=== PATIENT | female | born 1995 | race Caucasian/White ===

== ENCOUNTER 2022-05-29 20:13 | Emergency (ER) | payer BC, OTHER, SELFPAY ==
[2022-05-29] VITALS (7 sets, daily range): BP systolic 110; BP diastolic 73; PULSE 102–118; RESP 18; TEMP 36.7; O2SAT 96–100; BMI 30.8
--- NOTE | 2022-05-29 20:43 | ED.NAVMDI ---
HPI - Nausea/Vomiting/Diarrhea General Time Seen by Provider: 20:43 Date Seen: 05/29/22 Chief complaint: Nausea/Vomiting Stated complaint: Flu like symptoms, Vomiting Time Seen by Provider: 05/29/22 20:42 Source: patient, RN notes reviewed and old records reviewed Mode of arrival: ambulatory Limitations: no limitations History of Present Illness HPI Narrative: Patient is a very pleasant 26-year-old female who presents to the emergency room with her father for evaluation regarding nausea vomiting and diarrhea. Patient notes that approximately 1000 hours today she was not feeling very well and had the onset of vomiting at 1300 hours. Shortly thereafter she started experiencing very liquid diarrhea. She agrees that she feels more bloated today. She denies any respiratory symptoms at this time. She states that she just finished her 2nd round of antibiotics on SundayMay 26 for recurrent sinusitis. She does not feel that the medication helped very much. She has not had C diff in the past. She does endorse abdominal discomfort. It is rather diffuse across the mid aspect of her abdomen. She denies dysuria or hematuria. She has not had any fever but does describe chills. She does not know that she gets any relief of her abdominal discomfort with vomiting or passing stool. No blood in the stool. 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 Related Data Home Medications Medication Instructions Recorded Confirmed sertraline 50 mg tablet 75 mg PO DAILY 05/29/22 05/29/22 Previous Rx's Medication Instructions Recorded vancomycin 50 mg/mL oral solution 125 mg (2.5 mL) PO QID 10 days 05/30/22 #100 mL Allergies Allergy/AdvReac Type Severity Reaction Status Date / Time Penicillins Allergy Mild Hives Verified 05/29/22 20:52 Review of Systems Status of ROS: Reports: 10 or more systems reviewed and unremarkable except as noted in History and below Narrative: Denies Const: Reports: chills; Denies: fever ENMT: Reports: nasal congestion; Denies: throat pain, neck pain, throat swelling or difficulty swallowing Cardio: Denies: chest pain or shortness of breath with exertion Resp: Denies: shortness of breath, cough or wheezing GI: Denies: difficulty swallowing : Denies: painful urination or urinary frequency Musculo: Denies: neck pain Integ/Breast: Denies: rash Neuro: Denies: headache, numbness in extremities or weakness in extremities Allergy/Immuno: Denies: throat swelling or wheezing PFSH PFSH Social History Smoking Status: Unknown if ever smoked Exam Narrative: Exam Narrative: Patient is alert and oriented. She is lying comfortably in exam room 1. Eyes are clear. Oral cavity with moist mucous membranes. Neck is supple without lymphadenopathy. Heart with regular rate and rhythm and lungs are clear in all lung santos. Abdomen is soft no significant tenderness with palpation. Moving all extremities. No unusual rashes Const: Vital Signs, click to edit/add: Vital Signs - 24 hr 05/29/22 20:36 05/29/22 22:37 05/29/22 22:46 Temperature 98.1 F Pulse Rate 109 H 110 H Respiratory Rate 18 Blood Pressure [Ri ght Upper Arm] 110/73 Pulse Oximetry 100 99 98 Oxygen Delivery Me thod Room Air Room Air 05/29/22 23:00 05/29/22 23:15 05/29/22 23:34 Temperature Pulse Rate 118 H 112 H 109 H Respiratory Rate Blood Pressure [Ri ght Upper Arm] Pulse Oximetry 96 97 99 Oxygen Delivery Me thod 05/29/22 23:45 05/30/22 00:00 05/30/22 00:15 Temperature Pulse Rate 102 H 96 98 Respiratory Rate Blood Pressure [Ri ght Upper Arm] Pulse Oximetry 99 98 98 Oxygen Delivery Me thod 05/30/22 00:30 05/30/22 00:45 05/30/22 01:00 Temperature Pulse Rate 101 H 101 H 113 H Respiratory Rate Blood Pressure [Ri ght Upper Arm] Pulse Oximetry 97 96 97 Oxygen Delivery Me thod 05/30/22 01:15 05/30/22 01:30 05/30/22 01:45 Temperature Pulse Rate 110 H 109 H 109 H Respiratory Rate Blood Pressure [Ri ght Upper Arm] Pulse Oximetry 98 98 97 Oxygen Delivery Me thod 05/30/22 02:00 05/30/22 02:13 Temperature 98.1 F Pulse Rate 110 H Respiratory Rate 18 Blood Pressure [Ri ght Upper Arm] 110/73 Pulse Oximetry 96 Oxygen Delivery Me thod Documenting provider has reviewed patient's vital signs: yes Course Course Hospital Course: At this time will give 2 L of normal saline, Zofran 4 mg IV. Would recommend C diff check is patient has just finished her 2nd round of antibiotics for sinusitis. In addition will check CBC, comprehensive panel, CRP and urinalysis. COVID swab pending Reevaluation(s) Reevaluation #1: Patient noted to have additional emesis after 4 mg of Zofran. Repeated Zofran dosing and patient vomited once again. Will use Ativan 0.5 mg IV in the hopes that she is able to keep down her 1st dose of vancomycin 125 mg p.o.. If she is will send her home with both Ativan and Zofran with vancomycin 125 p.o. q.i.d.. Reevaluation #2: Patient able to keep down vancomycin therefore will send patient home at this time. Vital Signs Vital signs: Initial Vital Signs Temperature 98.1 F 05/29/22 20:36 Temperature Source Temporal Artery Scan 05/29/22 20:36 Respiratory Rate 18 05/29/22 20:36 Blood Pressure 110/73 05/29/22 20:36 Blood Pressure Mean 85 05/29/22 20:36 Blood Pressure Position Sitting 05/29/22 20:36 Pulse Oximetry 100 05/29/22 20:36 Oxygen Delivery Method 05/29/22 20:36 Vital Signs Temperature 98.1 F 05/29/22 20:36 Respiratory Rate 18 05/29/22 20:36 Blood Pressure 110/73 05/29/22 20:36 Pulse Oximetry 100 05/29/22 20:36 Oxygen Delivery Method 05/29/22 20:36 Temperature 98.1 F 05/30/22 02:13 Pulse Rate 110 H 05/30/22 02:00 Respiratory Rate 18 05/30/22 02:13 Blood Pressure 110/73 05/30/22 02:13 Pulse Oximetry 96 05/30/22 02:00 Oxygen Delivery Method 05/29/22 22:37 MDM - Nausea/Vomiting/Diarrhea MDM Narrative Medical decision making narrative: 1. C diff-patient had 2 rounds of antibiotics for the treatment of sinusitis. White count elevated at 13.42 with a normal CRP. Urinalysis with 1+ ketones and negative for COVID/influenza/RSV. Unfortunately C diff is positive. Patient discharged home on vancomycin 125 mg p.o. q.i.d. times 10 days. First dose given in the ER. Patient should note improvement within 24 hours and significant improvement by day 8. If she has ongoing symptoms she will need to return to the emergency room as needed. If she is not completely improved by day 8 May need to check with primary MD to see if extension of 10 day course is necessary. Discussed good handwashing and using 1 bathroom during this time frame. Patient does ask if she can breastfeed. Would recommend washing of the hands and breast area prior to this. 2. Nausea vomiting diarrhea-patient given IV fluids. recommend Zofran 4 mg ODT q.8 hours for nausea. For breakthrough nausea may use Ativan 0.5 mg 1-2 tabs p.o. q.8 hours p.r.n.. Both of these medications issue through [employer]. Ten tablets of each. If using Ativan will likely need to pump and dump any breast milk and use which she has on hand. 2. Disposition-home at this time. Return as needed for worsening symptoms. Start probiotics. Medical Records Attestation: I reviewed the patient's medical records. Lab Data Attestation: I reviewed the patient's lab results. Labs: Lab Results 05/29/22 05/29/22 05/29/22 Range/Units 20:33 20:33 20:40 WBC 13.42 H (4.50-11.00) K/uL RBC 5.14 (4.00-5.20) m/uL Hgb 14.7 (12.0-16.0) gm/dL Hct 43.2 (33.0-51.0) % MCV 84 (80-100) fL MCH 29 (26-34) pg MCHC 34 (32-36) gm/dL RDW Coeff of Luz Marina 12.0 (11.5-15.5) % Plt Count 367 (140-440) K/uL Neut % (Auto) 86.3 H (42.0-72.0) % Lymph % (Auto) 6.4 L (20-44) % Arthur % (Auto) 5.7 (0.0-11.0) % Eos % (Auto) 0.6 (0.0-7.0) % Baso % (Auto) 0.2 (0.0-3.0) % Neut # (Auto) 11.60 H (1.7-7.0) K/uL Lymph # (Auto) 0.90 (0.90-2.90) K/uL Arthur # (Auto) 0.80 (0.00-0.90) K/UL Eos # (Auto) 0.10 (0.00-0.50) K/uL Baso # (Auto) 0.00 (0.00-0.30) K/uL Sodium (135-149) mmol/L Potassium (3.6-5.1) mmol/L Chloride (96-114) mmol/L Carbon Dioxide (20-32) mmol/L BUN (5-24) mg/dL Creatinine (0.5-1.5) mg/dL Estimated Creat Clear Estimated GFR ml/min Glucose (60-115) mg/dL Lactate (0.5-1.9) mmol/L Calcium (8.4-10.6) mg/dL Total Bilirubin (0.1-1.5) mg/dL Direct Bilirubin (0.0-0.5) mg/dL AST (12-35) U/L ALT (4-35) U/L Alkaline Phosphatase (40-150) U/L C-Reactive Protein (0.5-1.0) mg/dL Total Protein (6.0-8.3) g/dL Albumin (3.3-5.0) g/dL Urine Color (Yellow) Urine Appearance (Clear) Urine pH (5.0-8.5) Ur Specific [place] (1.000-1.030) Urine Protein (Negative) Urine Glucose (UA) (Negative) Urine Ketones (Negative) Urine Blood (Negative) Urine Nitrite (Negative) Urine Bilirubin (Negative) Urine Urobilinogen (0.2-1.0) Ur Leukocyte Esterase (Negative) Urine HCG, Qual (Negative) Stl C.difficile Tox PCR (Negative) St C. diff Tox Epid 027 (Negative) SARS-CoV-2 (PCR) Cancelled Negative SARS-CoV-2 Influenza Type A (PCR) Cancelled Negative PCR FLU A Influenza Type B (PCR) Cancelled Negative PCR FLU B RSV (PCR) Negative PCR RSV (Negative) 05/29/22 05/29/22 05/29/22 Range/Units 20:40 20:40 22:44 WBC (4.50-11.00) K/uL RBC (4.00-5.20) m/uL Hgb (12.0-16.0) gm/dL Hct (33.0-51.0) % MCV (80-100) fL MCH (26-34) pg MCHC (32-36) gm/dL RDW Coeff of Luz Marina (11.5-15.5) % Plt Count (140-440) K/uL Neut % (Auto) (42.0-72.0) % Lymph % (Auto) (20-44) % Arthur % (Auto) (0.0-11.0) % Eos % (Auto) (0.0-7.0) % Baso % (Auto) (0.0-3.0) % Neut # (Auto) (1.7-7.0) K/uL Lymph # (Auto) (0.90-2.90) K/uL Arthur # (Auto) (0.00-0.90) K/UL Eos # (Auto) (0.00-0.50) K/uL Baso # (Auto) (0.00-0.30) K/uL Sodium 143 (135-149) mmol/L Potassium 4.1 (3.6-5.1) mmol/L Chloride 108 (96-114) mmol/L Carbon Dioxide 22 (20-32) mmol/L BUN 19 (5-24) mg/dL Creatinine 0.7 (0.5-1.5) mg/dL Estimated Creat Clear 110.55 Estimated GFR 123 ml/min Glucose 141 H (60-115) mg/dL Lactate 1.5 (0.5-1.9) mmol/L Calcium 9.3 (8.4-10.6) mg/dL Total Bilirubin 0.8 (0.1-1.5) mg/dL Direct Bilirubin 0.2 (0.0-0.5) mg/dL AST 26 (12-35) U/L ALT 23 (4-35) U/L Alkaline Phosphatase 91 (40-150) U/L C-Reactive Protein 1.0 (0.5-1.0) mg/dL Total Protein 8.3 (6.0-8.3) g/dL Albumin 4.9 (3.3-5.0) g/dL Urine Color Yellow (Yellow) Urine Appearance Clear (Clear) Urine pH 6.5 (5.0-8.5) Ur Specific [place] 1.015 (1.000-1.030) Urine Protein Negative (Negative) Urine Glucose (UA) Negative (Negative) Urine Ketones 1+ A (Negative) Urine Blood Negative (Negative) Urine Nitrite Negative (Negative) Urine Bilirubin Negative (Negative) Urine Urobilinogen 0.2 (0.2-1.0) Ur Leukocyte Esterase Negative (Negative) Urine HCG, Qual Negative (Negative) Stl C.difficile Tox PCR (Negative) St C. diff Tox Epid 027 (Negative) SARS-CoV-2 (PCR) Influenza Type A (PCR) Influenza Type B (PCR) RSV (PCR) (Negative) 05/29/22 Range/Units 22:44 WBC (4.50-11.00) K/uL RBC (4.00-5.20) m/uL Hgb (12.0-16.0) gm/dL Hct (33.0-51.0) % MCV (80-100) fL MCH (26-34) pg MCHC (32-36) gm/dL RDW Coeff of Luz Marina (11.5-15.5) % Plt Count (140-440) K/uL Neut % (Auto) (42.0-72.0) % Lymph % (Auto) (20-44) % Arthur % (Auto) (0.0-11.0) % Eos % (Auto) (0.0-7.0) % Baso % (Auto) (0.0-3.0) % Neut # (Auto) (1.7-7.0) K/uL Lymph # (Auto) (0.90-2.90) K/uL Arthur # (Auto) (0.00-0.90) K/UL Eos # (Auto) (0.00-0.50) K/uL Baso # (Auto) (0.00-0.30) K/uL Sodium (135-149) mmol/L Potassium (3.6-5.1) mmol/L Chloride (96-114) mmol/L Carbon Dioxide (20-32) mmol/L BUN (5-24) mg/dL Creatinine (0.5-1.5) mg/dL Estimated Creat Clear Estimated GFR ml/min Glucose (60-115) mg/dL Lactate (0.5-1.9) mmol/L Calcium (8.4-10.6) mg/dL Total Bilirubin (0.1-1.5) mg/dL Direct Bilirubin (0.0-0.5) mg/dL AST (12-35) U/L ALT (4-35) U/L Alkaline Phosphatase (40-150) U/L C-Reactive Protein (0.5-1.0) mg/dL Total Protein (6.0-8.3) g/dL Albumin (3.3-5.0) g/dL Urine Color (Yellow) Urine Appearance (Clear) Urine pH (5.0-8.5) Ur Specific [place] (1.000-1.030) Urine Protein (Negative) Urine Glucose (UA) (Negative) Urine Ketones (Negative) Urine Blood (Negative) Urine Nitrite (Negative) Urine Bilirubin (Negative) Urine Urobilinogen (0.2-1.0) Ur Leukocyte Esterase (Negative) Urine HCG, Qual (Negative) Stl C.difficile Tox PCR POSITIVE A* (Negative) St C. diff Tox Epid 027 PRESUMPTIVE NEGATIVE (Negative) SARS-CoV-2 (PCR) Influenza Type A (PCR) Influenza Type B (PCR) RSV (PCR) (Negative) Imaging Data CT scan - abdomen: Attestation: I have reviewed the pertinent imaging results. Radiologist's impression: [place] [address] Diagnostic Imaging Report Patient: Keegan Post MR#: [id number] : 1995 Acct:[id number] Loc: ED Service Date: 05/29/22 INDICATION: Abdominal pain. TECHNIQUE: CT abdomen and pelvis acquired with 91 cc Isovue 370 IV contrast. COMPARISON: None. FINDINGS: Lower chest: Unremarkable. Liver: Unremarkable. Normal in size and attenuation. No suspicious masses. Gallbladder and bile ducts: Unremarkable. No stones or inflammation. No biliary ductal dilatation. Spleen: Unremarkable. Normal in size. No masses. Adrenal glands: Unremarkable. No nodules. Pancreas: Unremarkable. No mass or inflammation. Kidneys: Unremarkable. No suspicious masses, stones, or hydronephrosis. GI tract: Normal in caliber. Fluid-filled colon. Normal appendix. Lymph nodes: No lymphadenopathy. Vasculature: Unremarkable. Omentum/Peritoneum/Abdominal Wall: Unremarkable. No free air or significant free fluid. Pelvis: Unremarkable. Bones: Unremarkable for age. IMPRESSION: 1. Fluid-filled colon, likely reflecting diarrheal state. 2. Otherwise no acute abdominal or pelvic abnormality. Discharge Plan Discharge Clinical Impression: Nausea vomiting and diarrhea, C. difficile colitis Patient Disposition: Home w/ Parent or Adult Condition: Improved Additional Instructions: Continue vancomycin 4 times daily for 10 days. Zofran ODT should be used every 6 hours for nausea. Please push fluids as much as possible. Recommend Gatorade, Powerade, Jell-O, broth and not just water intake. Ativan may be used for persisting nausea. You may breast feed but would recommend very good hand washing and soap and water washing of the breast prior to feeding. If you are in a situation where you need to use the Ativan, I would pump and dump that particular feed and use the milk that you have saved up. Otherwise, Zofran and vancomycin may be used in breast-feeding. If you have worsening symptoms you will need to return to the emergency room. If you have improvement of your symptoms continue current treatment. If you note some improvement but you are still experiencing diarrhea on day 8 please make an appointment with your regular doctor as they may wish to extend your 10 day dosing to a longer stretch of time. You are contagious and this is spread by stool droplets. Please have a designated bathroom for you to use. Recommend good handwashing and doing her own laundry. Return as needed. Prescriptions: New vancomycin 50 mg/mL recon soln 125 mg PO QID 10 Days Qty: 100 0RF No Action sertraline 50 mg tablet 75 mg PO DAILY Label Comments: TAKE 1.5 TABLETS BY MOUTH EVERY MORNING Stand Alone Forms: [employer] Info Instructions
[2022-05-29 20:49] LABS: Lactate* 1.5 mmol/L (0.5-1.9)
[2022-05-29 20:51] LABS: Basophils Percent Auto 0.2 % (0.0-3.0); Eosinophils Percent Auto 0.6 % (0.0-7.0); Hematocrit 43.2 % (33.0-51.0); Hemoglobin* 14.7 gm/dL (12.0-16.0); Immature Granulocytes Pct Auto 0.8 %; Lymphocytes Percent Auto 6.4 % (20-44); Mean Corpuscular HGB Conc 34 gm/dL (32-36); Mean Corpuscular Hemoglobin 29 pg (26-34); Mean Corpuscular Volume 84 fL (80-100); Monocytes Percent Auto 5.7 % (0.0-11.0); Neutrophils Percent Auto 86.3 % (42.0-72.0); Platelet Count* 367 K/uL (140-440); Red Blood Count 5.14 m/uL (4.00-5.20); White Blood Count* 13.42 K/uL (4.50-11.00)
[2022-05-29 20:54] LABS: Slide Review Reflex No
[2022-05-29 21:06] LABS: Chloride* 108 mmol/L (96-114); Potassium* 4.1 mmol/L (3.6-5.1); Sodium* 143 mmol/L (135-149)
[2022-05-29 21:09] LABS: Carbon Dioxide* 22 mmol/L (20-32); Creatinine* 0.7 mg/dL (0.5-1.5); Est. Creatinine Clearance* 110.55; Estimated Glomerular Filt Rate 123 ml/min
[2022-05-29 21:10] LABS: Blood Urea Nitrogen* 19 mg/dL (5-24); Calcium* 9.3 mg/dL (8.4-10.6); Glucose* 141 mg/dL (60-115)
[2022-05-29] MEDS: ONDANSETRON 2 MG/ML inj 4 MG IVP ×2 (21:13→23:19)
[2022-05-29] MEDS: 0.9 % SODIUM CHLORIDE 1000 ml 1,000 ML IV ×2 (21:14→21:36)
[2022-05-29 21:19] LABS: PCR FLU A Negative PCR FLU A (Negative); PCR FLU B Negative PCR FLU B (Negative); PCR RSV Negative PCR RSV (Negative)
[2022-05-29 21:20] LABS: SARS PCR* Negative SARS-CoV-2 (Negative)
[2022-05-29 21:21] LABS: Albumin* 4.9 g/dL (3.3-5.0)
[2022-05-29 21:24] LABS: Alkaline Phosphatase* 91 U/L (40-150); Aspartate Amino Transferase* 26 U/L (12-35); Bilirubin Direct* 0.2 mg/dL (0.0-0.5); Bilirubin Total* 0.8 mg/dL (0.1-1.5); Total Protein* 8.3 g/dL (6.0-8.3)
[2022-05-29 21:25] LABS: Alanine Aminotransferase* 23 U/L (4-35)
[2022-05-29 22:50] LABS: Appearance Urine Clear (Clear); Bilirubin Urine Negative (Negative); Blood Urine Negative (Negative); Color Urine Yellow (Yellow); Glucose Urine Negative (Negative); Ketones Urine 1+ (Negative); Leukocyte Esterase Urine Negative (Negative); Nitrite Urine Negative (Negative); Protein Urine Negative (Negative); Specific Gravity Urine 1.015 (1.000-1.030); Urobilinogen Urine 0.2 (0.2-1.0); pH Urine 6.5 (5.0-8.5)
[2022-05-29 22:57] LABS: Ur HCG Qualitative* Negative (Negative)
[2022-05-29] MEDS: CALCIUM CARBONATE 500 MG CHEW PO (23:07)
--- NOTE | 2022-05-29 23:15 | CRLHL7_ITS ---
For Patients: As a result of the Century Cures Act, medical imaging exams and procedure reports are released immediately into your electronic medical record. You may view this report before your referring provider. If you have questions, please contact your health care provider. INDICATION: Abdominal pain. TECHNIQUE: CT abdomen and pelvis acquired with 91 cc Isovue 370 IV contrast. COMPARISON: None. FINDINGS: Lower chest: Unremarkable. Liver: Unremarkable. Normal in size and attenuation. No suspicious masses. Gallbladder and bile ducts: Unremarkable. No stones or inflammation. No biliary ductal dilatation. Spleen: Unremarkable. Normal in size. No masses. Adrenal glands: Unremarkable. No nodules. Pancreas: Unremarkable. No mass or inflammation. Kidneys: Unremarkable. No suspicious masses, stones, or hydronephrosis. GI tract: Normal in caliber. Fluid-filled colon. Normal appendix. Lymph nodes: No lymphadenopathy. Vasculature: Unremarkable. Omentum/Peritoneum/Abdominal Wall: Unremarkable. No free air or significant free fluid. Pelvis: Unremarkable. Bones: Unremarkable for age. IMPRESSION: 1. Fluid-filled colon, likely reflecting diarrheal state. 2. Otherwise no acute abdominal or pelvic abnormality. Please note that all CT scans at this facility use dose modulation, iterative reconstruction, and/or weight-based dosing when appropriate to reduce radiation dose to as low as reasonably achievable. Dictated by Saran Lyon MD @ 05/30/2022 12:02:07 AM (Electronically Signed)
[2022-05-29 23:43] LABS: CDIFFEPI 027 PRESUMPTIVE NEGATIVE (Negative)
[2022-05-29 23:47] LABS: C.Difficile POSITIVE (Negative)
[2022-05-30] VITALS (10 sets, daily range): BP systolic 110; BP diastolic 73; PULSE 96–113; RESP 18; TEMP 36.7; O2SAT 96–98
[2022-05-30] MEDS: LORazepam 2 MG/ML inj 0.5 MG IVP (01:10)
[2022-05-30] MEDS: VANCOMYCIN 125 MG CAPSULE PO (01:10)
--- NOTE | 2022-05-30 02:05 | ED.NURSE ---
Patient sleeping in room, patient tolerated PO antibiotic and water. father states that they are ready to go home. MD updated.
== END 2022-05-30 02:24 | disposition home or self-care (01) ==
PROVIDERS: Emergency Provider Family Medicine
DX: K52.9 Noninfective gastroenteritis and colitis, unspecified (principal); A04.72 Enterocolitis due to Clostridium difficile, not specified as recurrent; R11.2 Nausea with vomiting, unspecified
CPT/HCPCS: 36415; 74177; 80048; 80076; 81003; 81025; 83605; 85025; 86140; 87493; 87502; 87631; 87634; 87635; 96374; 96375; 96376; 99284; A9270; J2060; J2405; J7030; Q9967